=== PATIENT | male | born 1965 | race Caucasian/White ===

== ENCOUNTER 2016-09-01 08:22 | Emergency (ER) | payer OTHER ==
[~2016-09-01] VITALS: Ht 162.6 cm; Wt 86.0 kg
[2016-09-01 08:26] VITALS: Ht 162.6 cm; Wt 86.0 kg
[2016-09-01] MEDS ORDERED: ONDANSETRON 4 MG INJ IV STA (08:39)
[2016-09-01] MEDS ORDERED: SOD CHLORIDE 0.9% 1,000 ML IV STA (08:39)
[2016-09-01] MEDS ORDERED: morphine 4 MG/ML VIAL IV STA (08:39)
[2016-09-01 08:57] LABS: ADD SCAN DIFF NO
[2016-09-01 08:59] LABS: BASOPHILS % 0.4 % (0.0-2.0); EOSINOPHILS # 0.1 10^3/ul (0.0-0.5); EOSINOPHILS % 1.8 % (0.0-7.0); HEMATOCRIT 44.3 % (42.0-52.0); HEMOGLOBIN 15.1 g/dl (14.0-18.0); LYMPHOCYTES # 1.9 10^3/ul (0.8-2.9); LYMPHOCYTES % 33.7 % (15.0-51.0); MEAN CORPUSCULAR HEMOGLOBIN 29.4 pg (29.0-33.0); MEAN CORPUSCULAR HGB CONC 34.1 g/dl (32.0-37.0); MEAN CORPUSCULAR VOLUME 86.4 fl (82.0-101.0); MEAN PLATELET VOLUME 9.9 fl (7.4-10.4); MONOCYTE # 0.4 10^3/ul (0.3-0.9); MONOCYTES % 6.3 % (0.0-11.0); NEUTROPHIL # 3.2 10^3/ul (1.6-7.5); NEUTROPHILS % 57.6 % (39.0-77.0); PLATELET COUNT 230 10^3/UL (140-415); RED BLOOD COUNT 5.13 10^6/ul (4.70-6.10); RED CELL DISTRIBUTION WIDTH 12.9 % (11.5-14.5); WHITE BLOOD COUNT 5.6 10^3/ul (4.8-10.8)
[2016-09-01] MEDS ORDERED: MECLIZINE 12.5 MG TAB PO ONE (09:00)
[2016-09-01 09:13] LABS: INR 0.91; PROTIME 12.3 Sec (12.2-14.2)
--- NOTE | 2016-09-01 09:13 | RADRPT ---
PROCEDURE: XR Chest. CLINICAL INDICATION: Stroke symptoms TECHNIQUE: An AP view of the chest was obtained. COMPARISON: None. FINDINGS: Lung volumes are low. There is prominence of the interstitial and central pulmonary vascular francisco ngs. No pleural effusion or pneumothorax is seen. The cardiomediastinal silhouette is mildly enl arged . The osseous structures demonstrate senescent changes. IMPRESSION: 1. Findings suggestive of pulmonary vascular congestion. 2. Low lung volumes. RPTAT: HH .Mercy Beatty MD, Date Time Electronically viewed and signed by .Mercy Beatty MD, MD on 09/01/2016 09:13 .G/
[2016-09-01 09:14] LABS: PARTIAL THROMBOPLASTIN TIME 26.7 Sec (25.0-35.0)
--- NOTE | 2016-09-01 09:16 | RADRPT ---
PROCEDURE: CT Brain without contrast. CLINICAL INDICATION: Dizziness. Possible stroke. TECHNIQUE: CT scan of the brain was performed on a multidetector high-resolution CT scan. Axial im aging was obtained of the brain without contrast administration. Coronal and sagittal reformatted i mages were obtained from the axial source images. Standard CT scan of the head without contrast prot ocols were performed. The total exam CTDI equals 45.01 mGy and the total exam DLP equals 630.2 mGy-cm. One or more of the following dose reduction techniques were used: - Automated exposure control. - Adjustment of the mA and/or kV according to patient size. Use of iterative reconstruction technique. COMPARISON: None. FINDINGS: The ventricular system and peripheral CSF spaces are unremarkable. Negative for intracranial masses hemorrhages or midline shift. Adams-white matter junction is unremarkable. The bones and calvarium are intact. The paranasal sinuses visualized are unremarkable. Mastoids are unremarkable. IMPRESSION: Negative CT scan of the head without contrast. RPTAT:AAJJ Physician Refugio Date Time Electronically viewed and signed by Physician Refugio on 09/01/2016 09:16 BM/
[2016-09-01 09:19] LABS: ANION GAP 21 (8-16); BLOOD UREA NITROGEN 15 mg/dl (7-20); CALCIUM 9.6 mg/dl (8.4-10.2); CARBON DIOXIDE 24 mmol/L (21-31); CHLORIDE 101 mmol/L (97-110); CREATININE 0.82 mg/dl (0.61-1.24); GLUCOSE 174 mg/dl (70-220); SODIUM 142 mmol/L (135-144)
[2016-09-01 09:38] LABS: TROPONIN-I < 0.012 ng/ml (0.00-0.12)
[2016-09-01] MEDS ORDERED: MECL12.574 PO (09:42)
[2016-09-01] MEDS ORDERED: IBUP-1542 PO (09:42)
--- NOTE | 2016-09-01 09:44 | ERD ---
ER Documentation Chief Complaint Date/Time DATE: 09/01/16 TIME: 09:43 Chief Complaint BIB RA C/O SUDDEN DIZZINESS AFTER WAKING UP LAST KNOWN WELL TIME 0700 HPI Patient is a 50-year-old male with no medical problems who presents with headache and dizziness. He was brought in by ambulance. He said this is the third time he has had this in approximately 1.5 years ago. The symptoms started at 7:30 AM. He denies slurred speech. He had no weakness. He has had no treatment as of yet. Upon review of old medical records this is the patient' s first visit to the emergency department. ROS All systems reviewed and are negative except as per history of present illness. Medications Home Meds Active Scripts Meclizine Hcl* (Antivert*) 12.5 Mg Tab, 25 MG PO Q6H Y for DIZZINESS, #20 TAB Prov:KRISTIN SWAN MD 09/01/16 Ibuprofen* (Motrin*) 600 Mg Tab, 600 MG PO Q6H Y for PAIN AND OR ELEVATED TEMP, #30 TAB Prov:KRISTIN SWAN MD 09/01/16 Allergies Allergies: Coded Allergies: No Known Allergy (Unverified , 09/01/16) PMhx/Soc Medical and Surgical Hx: pt denies Medical Hx, pt denies Surgical Hx History of Surgery: No Anesthesia Reaction: No Hx Neurological Disorder: No Hx Respiratory Disorders: No Hx Cardiac Disorders: No (FAMILY HX, BUT NOT CURRENT WITH PT) Hx Psychiatric Problems: No Hx Miscellaneous Medical Probl: No Hx Alcohol Use: No Hx Substance Use: No Hx Tobacco Use: No Smoking Status: Former smoker FmHx Family History: diabetes Physical Exam Vitals Vital Signs Date Time Temp Pulse Resp B/P Pulse Ox O2 Delivery O2 Flow Rate FiO2 09/01/16 10:00 98.6 94 14 160/97 99 Room Air 09/01/16 08:53 98.4 84 18 142/83 96 Room Air 09/01/16 08:26 85 20 176/100 97 Physical Exam Const: No acute distress Head: Atraumatic Eyes: Normal Conjunctiva ENT: Normal External Ears, Nose and Mouth. Neck: Full range of motion..~ No meningismus. Resp: Clear to auscultation bilaterally Cardio: Regular rate and rhythm, no murmurs Abd: Soft, non tender, non distended. Normal bowel sounds Skin: No petechiae or rashes Back: No midline or flank tenderness Ext: No cyanosis, or edema Neur: Awake and alert, cranial nerves II through XII intact, strength is 5 out of 5 in all 4 extremities, no slurred speech Psych: Normal Mood and Affect Result Diagram: 09/01/16 0845 09/01/16 0845 Results 24 hrs Laboratory Tests Test 09/01/16 08:45 09/01/16 09:30 White Blood Count 5.610^3/ul Red Blood Count 5.1310^6/ul Hemoglobin 15.1g/dl Hematocrit 44.3% Mean Corpuscular Volume 86.4fl Mean Corpuscular Hemoglobin 29.4pg Mean Corpuscular Hemoglobin Concent 34.1g/dl Red Cell Distribution Width 12.9% Platelet Count 80538^3/UL Mean Platelet Volume 9.9fl Neutrophils % 57.6% Lymphocytes % 33.7% Monocytes % 6.3% Eosinophils % 1.8% Basophils % 0.4% Nucleated Red Blood Cells % 0.0/100WBC Neutrophils # 3.210^3/ul Lymphocytes # 1.910^3/ul Monocytes # 0.410^3/ul Eosinophils # 0.110^3/ul Basophils # 0.010^3/ul Nucleated Red Blood Cells # 0.010^3/ul Prothrombin Time 12.3Sec Prothrombin Time Ratio 1.0 INR International Normalized Ratio 0.91 Activated Partial Thromboplast Time 26.7Sec Sodium Level 142mmol/L Potassium Level 4.0mmol/L Chloride Level 101mmol/L Carbon Dioxide Level 24mmol/L Anion Gap 21 Blood Urea Nitrogen 15mg/dl Creatinine 0.82mg/dl Glucose Level 174mg/dl Calcium Level 9.6mg/dl Troponin I < 0.012ng/ml Urine Color YELLOW Urine Clarity SLIGHTLY CLOUDY Urine pH 5.0 Urine Specific [place] 1.021 Urine Ketones NEGATIVEmg/dL Urine Nitrite NEGATIVEmg/dL Urine Bilirubin NEGATIVEmg/dL Urine Urobilinogen NEGATIVEmg/dL Urine Leukocyte Esterase NEGATIVELeu/ul Urine Microscopic RBC 0/HPF Urine Microscopic WBC 0/HPF Urine Hemoglobin NEGATIVEmg/dL Urine Glucose NEGATIVEmg/dL Urine Total Protein NEGATIVEmg/dl Current Medications Medications (Trade) Dose Ordered Sig/Wayne Route PRN Reason Start Time Stop Time Status Last Admin Dose Admin Sodium Chloride (NS) 1,000 ml @ 1,000 mls/hr Q1H STAT IV 09/01/16 08:39 09/01/16 09:38 DC 09/01/16 09:19 Morphine Sulfate (morphine) 4 mg ONCE STAT IV 09/01/16 08:39 09/01/16 08:41 DC Ondansetron HCl (Zofran Inj) 4 mg ONCE STAT IV 09/01/16 08:39 09/01/16 08:41 DC Meclizine HCl (Antivert) 25 mg ONCE ONCE PO 09/01/16 09:00 09/01/16 09:01 DC 09/01/16 09:18 Procedures/MDM EKG read by me: Rate/Rhythm: Regular rate and rhythm at a rate of 78 Intervals: Normal Impression: No evidence of ischemia or arrhythmia CT brain negative per radiology. Patient is a 50-year-old male presents with headache and dizziness. He had a full workup including laboratory studies, EKG, and CT scan of the brain. His workup was basically negative. At this point I doubt stroke, intracranial mass , or intracranial hemorrhage. I doubt acute coronary syndrome. I believe outpatient management is appropriate but the patient will need close follow-up with a primary doctor within 24-48 hours. As he does not currently have a primary doctor he will be given a list of local clinics. He can return for any worsening symptoms. Departure Diagnosis: Primary Impression: Headache Headache type: unspecified Headache chronicity pattern: acute headache Intractability: not intractable Qualified Code: R51 - Acute nonintractable headache, unspecified headache type Additional Impression: Dizziness Condition: Fair Patient Instructions: Self-Care for Headaches, Dizziness, Unk Cause [facility]errals: [facility] Usted se wyman hecho un examen mdico de control que le indica que no est en marichuy condicin que requiera tratamiento urgente en el Departamento de Emergencia. Un estudio ms profundo y el tratamiento de rolon condicin pueden esperar sin ningn riesgo hasta que usted sea atendida/o en el consultorio de rolon mdico o marichuy cl william. Es responsabilidad suya arreglar marichuy rhianna para el seguimiento del fabian. MANEJO DE CONDICIONES NO URGENTES EN EL FUTURO 1) Si usted tiene un mdico de atencin primaria: Usted debera llamar a rolon mdico de atencin primaria antes de venir al departamento de emergencia. Despus de las horas de consultorio, rolon doctor o rolon asociado/a est disponible por telfono. El mdico o enfermero de devin en el servicio telefnico puede asesorarle por daisy medio para atender el problema, o fabian contrario se puede programar marichuy rhianna. 2) Si usted no tiene un mdico de atencin primaria: Llame al mdico o clnica de referencia que aparece abajo nilson las horas de consultorio para hacer marichuy rhianna para que le vean. CLINICAS: [facility] [phone] [facility] [phone] [facility] [phone] [facility] [facility] [phone] [facility] [address] [place] [phone] [facility] [phone] Additional Instructions: Llame al doctor MAANA y nelly marichuy RHIANNA PARA DENTRO DE 1-2 ESTRADA.Dgale a la secretaria que nosotros le instruimos hacer esta rhianna.Avise o llame si rolon condicin se empeora antes de la rhianna. Regresa aqui si peor o no mejor. KRISTIN SWAN MD Sep 01, 2016 09:44
[2016-09-01 09:45] LABS: ADD UMIC NO; UR ASCORBIC ACID 40 mg/dL (NEGATIVE); UR BILIRUBIN (Dip) NEGATIVE (NEGATIVE); UR BLOOD (Dip) NEGATIVE (NEGATIVE); UR CLARITY SLIGHTLY CLOUDY (CLEAR); UR COLOR YELLOW (YELLOW); UR GLUCOSE (Dip) NEGATIVE (NEGATIVE); UR KETONES (Dip) NEGATIVE (NEGATIVE); UR LEUKOCYTE ESTERASE (Dip) NEGATIVE Leu/ul (NEGATIVE); UR NITRITE (Dip) NEGATIVE (NEGATIVE); UR RBC 0 /HPF (0-5); UR SPECIFIC GRAVITY (Dip) 1.021 (1.003-1.030); UR TOTAL PROTEIN (Dip) NEGATIVE (NEGATIVE); UR UROBILINOGEN (Dip) NEGATIVE (NEGATIVE)
[2016-09-01 10:00] VITALS: BP 160/97; PULSE 94; RESP 14; TEMP 98.6
[2016-09-01 11:40] LABS: BARBITURATES Negative (NEGATIVE); BENZODIAZEPINES Negative (NEGATIVE); CANNABINOIDS Negative (NEGATIVE); COCAINE Negative (NEGATIVE); OPIATES Negative (NEGATIVE)
== END 2016-09-01 10:43 | disposition home or self-care (01) ==
LOC: E/R 08:22
DX: R51 Headache (principal); R07.9 Chest pain, unspecified; Z87.891 Personal history of nicotine dependence
CPT/HCPCS: 36415; 70450; 71010; 80048; 80307; 81001; 83036; 84484; 85025; 85610; 85730; 93005; 96360; 99285; J7030; 81003